=== PATIENT | male | born 1975 | race Two or more races ===

== ENCOUNTER 2021-03-24 15:06 | Outpatient (CLI) | payer OTHER | END 2021-03-24 15:10 | disposition home or self-care (01) | LOC: LAB 15:06 | PROVIDERS: ATTEND General Practice | DX: Z20.822 Contact with and (suspected) exposure to COVID-19 (principal) ==

== ENCOUNTER 2021-04-01 14:48 | Outpatient (CLI) | payer OTHER | END 2021-04-01 15:12 | disposition home or self-care (01) | LOC: LAB 14:48 | DX: U07.1 COVID-19 (principal) ==